=== PATIENT | male | born 1950 | race African-American/Black ===

== ENCOUNTER 2022-06-18 13:30 | Emergency (ER) | payer MEDICARE, OTHER ==
[~2022-06-18] VITALS: Ht 182.9 cm; Wt 88.0 kg
[~2022-06-18 13:30] MED LIST: ATEN50TA; CLOP-31; TERA10CA4
[2022-06-18] MEDS ORDERED: FUROSEMIDE 40MG/4ML VIAL IVP ONE (14:00)
[2022-06-18 16:58] LABS: CHLORIDE 105 mEq/L (98-107)
[2022-06-18 17:01] LABS: BASOPHILS % 0.4 % (0.0-2.0); EOSINOPHILS % 0.3 % (0.0-5.0); HEMATOCRIT. 45.1 % (42.0-52.0); HEMOGLOBIN. 15.1 g/dL (14.0-18.0); LYMPHOCYTES % 12.1 % (20.0-50.0); MEAN CORPUSCULAR HEMOGLOBIN 29.2 pg (28.0-32.0); MEAN CORPUSCULAR VOLUME 87.2 fL (80.0-94.0); MEAN PLATELET VOLUME 8.7 fl (7.4-10.4); MONOCYTES % 9.8 % (2.0-8.0); NEUTROPHILS % 77.4 % (40.0-76.0); PLATELET 98 x1000/uL (130-400); RED BLOOD CELL COUNT 5.17 mill/uL (4.7-6.1); RED CELL DISTRIBUTION WIDTH 15.6 % (11.6-14.6)
[2022-06-18] MEDS ORDERED: ASPIRIN 325MG EC TABLET PO NR (18:00)
[2022-06-18] MEDS ORDERED: CEFTRIAXONE 1GM PREMIX 50 ML IV NR (18:15)
[2022-06-18] MEDS ORDERED: AZITHROMYCIN 500MG/250ML 250 ML IV NR (18:15)
[2022-06-18] MEDS ORDERED: ACETAMINOPHEN 325MG TABLET PO ONE (18:30)
[2022-06-18 20:36] LABS: D-DIMER 5.69 mg/L FEU (<0.50); INR 1.2; PROTHROMBIN TIME 12.3 sec (9.6-11.0)
[2022-06-18 22:00] VITALS: BP 136/58
== END 2022-06-19 01:26 | disposition short-term general hospital (02) ==
LOC: ER 13:30 → EDBEDREQ 22:49 → ER 06-19 01:26
DX: I21.4 Non-ST elevation (NSTEMI) myocardial infarction (principal); J18.9 Pneumonia, unspecified organism; R60.0 Localized edema; J02.9 Acute pharyngitis, unspecified; I11.0 Hypertensive heart disease with heart failure; I50.9 Heart failure, unspecified; E11.9 Type 2 diabetes mellitus without complications; J44.9 Chronic obstructive pulmonary disease, unspecified; Z20.822 Contact with and (suspected) exposure to COVID-19; Z88.1 Allergy status to other antibiotic agents; Z88.8 Allergy status to other drugs, medicaments and biological substances
CPT/HCPCS: 36415; 71045; 80053; 83605; 83880; 84484; 85025; 85379; 85610; 87426; 96365; 96366; 96368; 96375; 99285; C9803; J0456; J0696; J1940